=== PATIENT | male | born 1970 | race Caucasian/White ===

== ENCOUNTER 2017-09-09 12:04 | Emergency (ER) | payer BC ==
[2017-09-09 12:33] VITALS: BP 148/89
[2017-09-09] MEDS ORDERED: Lidocaine 1% 50 ML MDV INJECT ONE (14:07)
--- NOTE | 2017-09-09 15:17 | EDM.PDOC ---
ED HPI GENERAL MEDICAL PROBLEM - General Chief Complaint: Gastrointestinal Problem Stated Complaint: HEMMROID Time Seen by Provider: 09/09/17 12:35 Source of Information: Reports: Patient History Limitations: Reports: No Limitations - History of Present Illness INITIAL COMMENTS - FREE TEXT/NARRATIVE: 47-year-old male presents for evaluation and treatment a hemorrhoid. Patient reports that he developed pain Th night around 11 PM. He reports the pain was significantly worse last night. Patient reports that he tried Preparation H but continues to have discomfort. Patient states he has required clot removal of hemorrhoids four other times in the past. Most recently was about 2007. Reports significant pain and itching to the area. States the pain comes and goes. Has improved since last night but continues to present. No melena or hematochezia. Patient does not have a primary care provider. Location: Reports: Pelvis (anus) Rectal Pain Score (Numeric/FACES): 5 - Related Data Allergies Allergy/AdvReac Type Severity Reaction Status Date / Time No Known Allergies Allergy Verified 09/09/17 12:27 Home Meds: Home Meds Dibucaine [Nupercainal 1% Oint] 1 gm TOP QID PRN #1 tube 09/09/17 [Rx] Past Medical History - Past Health History Medical/Surgical History: Denies Medical/Surgical History HEENT History: Reports: Impaired Vision Social & Family History - Tobacco Use Smoking Status *Q: Never Smoker Years of Tobacco use: 15 Packs/Tins Daily: 0.2 - Caffeine Use Caffeine Use: Reports: Coffee, Soda - Recreational Drug Use Recreational Drug Use: No ED ROS GENERAL - Review of Systems Review Of Systems: See Below GI/Abdominal: Reports: Other (reports rectal pain and pruritus). Denies: Hematochezia, Melena ED EXAM, GI/ABD - Physical Exam Exam: See Below Exam Limited By: No Limitations General Appearance: Alert, WD/WN, No Apparent Distress Respiratory/Chest: No Respiratory Distress, Lungs Clear, Normal Breath Sounds Cardiovascular: Normal Peripheral Pulses, Regular Rate, Rhythm, No Murmur GI/Abdominal Exam: Soft, Non-Tender Rectal (Males) Exam: Hemorrhoids (approximately 1/2 dollar sized thrombosed external hemorrhoid at the 12 o'clock position) Neurological: Alert, Oriented, Normal Cognition Psychiatric: Normal Affect, Normal Mood Skin Exam: Warm, Dry, Normal Color ED ABDOMINAL/GI PROCEDURES - Additional/Other Procedure(s) Procedure(s) (Free Text): excision of thrombus from external hemorrhoid Consent obtained. Risks and benefits discussed. Risks include failure of procedure, infection, reaction to medication, bleeding and . Benefits include relief of pain and discomfort Proximally half-dollar thrombosed external hemorrhoid at the 12 o'clock position to the anus identified. Area was cleaned with 3 swabs of ChloraPrep. 1 % lidocaine without epinephrine was injected into the base of the hemorrhoid, 2 mL, an additional 1 mL was injected into the top of the hemorrhoid where the incision was to be made. Patient reports adequate anesthesia. An incision was then made in the top of the external hemorrhoid with an 11 blade. The hemorrhoid was probed to remove any clots. Patient had bleeding, Approximately 50 mL of blood. No large clots were able to be found. The hemorrhoid did shrink significantly in size. A piece of gauze was placed to the area. I checked on the patient approximately 15 minutes after the procedure. Had minimal bleeding at that time. No complications. Patient tolerated procedure well. Course - Vital Signs Last Recorded V/S: Last Vital Signs Temp 36.9 C 09/09/17 12:28 Pulse 84 09/09/17 12:28 Resp 13 09/09/17 12:28 BP 148/89 H 09/09/17 12:28 Pulse Ox 100 09/09/17 12:28 - Orders/Labs/Meds Meds: Medications Discontinued Medications Generic Name Dose Route Start Last Admin Trade Name Frankq PRN Reason Stop Dose Admin Lidocaine HCl 50 ml 09/09/17 14:07 09/09/17 14:28 Xylocaine 1% INJECT 09/09/17 14:08 50 ml ONETIME ONE Administration - Re-Assessments/Exams Free Text/Narrative Re-Assessment/Exam: 09/09/17 14:[address] Valdez, surgery energy conservation representative. [place] removal of clot was appropriate. Plan to preform thrombus removal of external hemorrhoid. Recommended dibucaine topical for additional relief. 09/09/17 15:30 I checked on the patient. Bleeding is minimal. Will discharge home at this time. Discharge as documented. Departure - Departure Time of Disposition: 15:31 Disposition: Home, Self-Care 01 Condition: Fair Clinical Impression: Thrombosed external hemorrhoid - Discharge Information Prescriptions: Dibucaine [Nupercainal 1% Oint] 1 gm TOP QID PRN #1 tube PRN Reason: Pain Instructions: Hemorrhoids, [id number] Referrals: PCP,None [Primary Care Provider] - Sarwat Valdez MD [Physician] - Forms: ED Department Discharge Additional Instructions: Dibucaine ointment to the area 3-4 times a day. Sitz bath one or 2 times a day. Recommend [id number] fiber or MiraLAX to have loose, easily passable bowel movements. make sure you are drinking plenty of water. Follow-up with the general surgeon for consult for further management of her hemorrhoids. Recommend Dr. Valdez at [facility]. Call [phone] to schedule with him. Monitor for signs of infection such as increased swelling, redness or pus. Present to the clinic or the ER should these develop. Please return to the ER for symptoms change or worsen.
== END 2017-09-09 15:45 | disposition home or self-care (01) ==
LOC: JD.ED 12:04
DX: K64.5 Perianal venous thrombosis (principal)
CPT/HCPCS: 46083; 99282-25; 99283-25

== ENCOUNTER 2018-01-26 12:26 | Emergency (ER) | payer BC ==
[2018-01-26 12:35] VITALS: BP 137/97
--- NOTE | 2018-01-26 14:10 | EDM.PDOC ---
ED HPI GENERAL MEDICAL PROBLEM - General Chief Complaint: Lower Extremity Injury/Pain Stated Complaint: RIGHT LEG ISSUES Time Seen by Provider: 01/26/18 12:41 Source of Information: Reports: Patient History Limitations: Reports: No Limitations - History of Present Illness INITIAL COMMENTS - FREE TEXT/NARRATIVE: The patient presents with pain to his right foot and ankle and pain and swelling to his right leg. He sprained his ankle 2 weeks ago. He had x-rays done he was told they were normal. He has been using crutches but he still has pain and he cannot bear any weight. He was mostly concerned about some knots he feels to some veins in the inner thigh. He was diagnosed with superficial thrombophlebitis years ago and he was on aspirin for awhile. He is worried that might have happened again. He has no fever, chills, cough, chest pain or shortness of breath. He has no abdominal pain, nausea or vomiting. Onset: Gradual Duration: Week(s): (2) Location: Reports: Lower Extremity, Right (ankle and leg) Quality: Reports: Sharp Severity: Moderate Improves with: Reports: Immobilization Worsens with: Reports: Movement Associated Symptoms: Reports: No Other Symptoms - Related Data Allergies Allergy/AdvReac Type Severity Reaction Status Date / Time No Known Allergies Allergy Verified 01/26/18 12:35 Home Meds: Home Meds Dibucaine [Nupercainal 1% Oint] 1 gm TOP QID PRN #1 tube 09/09/17 [Rx] Aspirin [M[facility]ennan Aspirin] 81 mg PO DAILY 01/26/18 [History] Past Medical History - Past Health History Medical/Surgical History: Denies Medical/Surgical History HEENT History: Reports: Impaired Vision Musculoskeletal History: Reports: Other (See Below) Other Musculoskeletal History: ankle sprain Social & Family History - Tobacco Use Smoking Status *Q: Never Smoker - Caffeine Use Caffeine Use: Reports: Coffee, Soda - Recreational Drug Use Recreational Drug Use: No Review of Systems - Review of Systems Review Of Systems: Unable To Obtain Constitutional: Reports: No Symptoms Eyes: Reports: No Symptoms Ears: Reports: No Symptoms Nose: Reports: No Symptoms Mouth/Throat: Reports: No Symptoms Respiratory: Reports: No Symptoms Cardiovascular: Reports: No Symptoms GI/Abdominal: Reports: No Symptoms Genitourinary: Reports: No Symptoms Musculoskeletal: Reports: Other (Pain to the right foot and ankle and some tenderness to the veins in the inner thigh) Skin: Reports: No Symptoms Neurological: Reports: No Symptoms ED EXAM, GENERAL - Physical Exam Exam: See Below Exam Limited By: No Limitations General Appearance: Alert, No Apparent Distress Ears: Normal External Exam Nose: Normal Inspection Head: Atraumatic, Normocephalic Neck: Normal Inspection Respiratory/Chest: No Respiratory Distress, Lungs Clear, Normal Breath Sounds Cardiovascular: Regular Rate, Rhythm, No Edema, No Murmur GI/Abdominal: Soft, Non-Tender, No Organomegaly, No Mass Back Exam: Normal Inspection Extremities: Other (Edema to the veins in the inner thight. Pain upon palpation with edema to the right ankle and food. Good sensation distally.) Course - Vital Signs Last Recorded V/S: Last Vital Signs Temp 97.4 F 01/26/18 12:32 Pulse 97 01/26/18 12:32 Resp 16 01/26/18 12:32 BP 137/97 H 01/26/18 12:32 Pulse Ox 97 01/26/18 12:32 - Re-Assessments/Exams Free Text/Narrative Re-Assessment/Exam: 01/26/18 14:12 I have ordered an US of his right leg that shows a superficial thrombophlegitis but no DVT. The x-ray of his right ankle shows a calcaneous fracture. I have ordered a CT of his foot. 01/26/18 15:[address] shows comminuted calcaneal fracture with extension into the anterior and posterior subtalar joint with depression of Boehler's angle. I let the patient know and I called [facility] [address] in [place] and talked with Dr Simental. He wanted him in a Cam boot and crutches and no weight bearing. I wanted him to follow up with Dr Franks next week. Departure - Departure Time of Disposition: 15:30 Disposition: Admitted As Inpatient 68 Condition: Good Clinical Impression: Superficial thrombophlebitis of right leg Calcaneus fracture Qualifiers: Encounter type: initial encounter Calcaneus location: unspecified portion of calcaneus Fracture type: closed Fracture alignment: displaced Laterality: right Qualified Code(s): S92.001A - Unspecified fracture of right calcaneus, initial encounter for closed fracture - Discharge Information Referrals: PCP,None [Primary Care Provider] - Andi Franks MD [Ordering Only Provider] - 1 Week Forms: ED Department Discharge Additional Instructions: Wear the cam walker but do not put weight on your foot. Use the crutches. Elevate your foot above your heart as much as you can for a few days. Ice your foot for 15 to 20 minutes 3 times per day for 5 days. Follow up with Dr Andi Franks with in a week. Please return if you are worse.
--- NOTE | 2018-01-26 14:35 | US ---
Right lower extremity deep venous ultrasound: Duplex and color flow imaging was obtained of the right common femoral, proximal greater saphenous, superficial femoral, popliteal, posterior tibial and peroneal veins. Left common femoral vein was also evaluated. Findings: Superficial varicosity is seen within the right thigh which shows evidence of thrombus. This is compatible with superficial thrombophlebitis. Deep veins show normal phasic flow, augmentation and compression. Impression: 1. No evidence of deep venous thrombosis within the right lower extremity or left common femoral vein. 2. Superficial thrombophlebitis. Diagnostic code #3
--- NOTE | 2018-01-26 14:44 | CR ---
Right ankle: Four views of the right ankle were obtained. Comparison: No prior study. Calcaneal fracture is seen posteriorly with mild decrease of Boehler's angle. Subtalar extension is noted. Ankle mortise is symmetric. Soft tissue swelling is noted. No additional fracture or other abnormality is seen. Impression: 1. Slightly depressed calcaneal fracture with subtalar extension. Diagnostic code #3
--- NOTE | 2018-01-26 15:09 | CT ---
CT right foot Technique: Multiple axial sections were obtained through the right foot. Comparison: Previous right foot radiograph performed earlier on same day (12:48 PM) Findings: Comminuted calcaneal fracture is seen. Several fracture lines are seen within the posterior subtalar joint as well as additional fracture being seen off the anterior calcaneus involving the anterior subtalar joint. Fracture extends inferiorly slightly anterior to a plantar spur. Additional fracture extends to the inferior and anterior calcaneus. Fracture also noted within the posterior calcaneus with posterior spur. There is depression of Boehler's angle being seen. Several well-corticated bony densities are seen off the tarsal metatarsal joint which is incidental. No additional fracture is seen. Diffuse soft tissue swelling is identified. Mild degenerative change is noted within the first MTP joint. Impression: 1. Comminuted calcaneal fracture with extension into the anterior and posterior subtalar joint with depression of Boehler's angle. 2. Other incidental findings. Diagnostic code #3
== END 2018-01-26 15:40 | disposition critical access hospital (66) ==
LOC: JD.ED 12:26
DX: S92.001A Unspecified fracture of right calcaneus, initial encounter for closed fracture (principal); I82.811 Embolism and thrombosis of superficial veins of right lower extremity; Z79.82 Long term (current) use of aspirin; X58.XXXA Exposure to other specified factors, initial encounter
CPT/HCPCS: 73610-26-RT; 73610-RT; 73700-26-RT; 73700-RT; 93971-26-RT; 93971-RT; 99283; 99284-25